=== PATIENT | female | born 1945 | race Caucasian/White ===

== ENCOUNTER 2019-02-12 | Emergency (ER) | payer MEDICARE ==
[~2019-02-12] MED LIST: ACCUPRIL5 MG PO; AMLODIPINE5 MG PO; ASPIRIN81 MG PO; FOSAMAX PLUS PO; GLIMEPIRIDE2 MG PO; OMEPRAZOLE20 MG PO; TOPROL XL PO
[2019-02-12] MEDS ORDERED: GENTAK0.32 OU (14:27)
[2019-02-12] MEDS ORDERED: AMOX/K CLAV875 M1 PO (14:27)
== END 2019-02-12 14:44 | disposition home or self-care (01) ==
DX: J02.0 Streptococcal pharyngitis (principal); H10.33 Unspecified acute conjunctivitis, bilateral; J32.9 Chronic sinusitis, unspecified; E11.9 Type 2 diabetes mellitus without complications; G20 Parkinson's disease; Z79.84 Long term (current) use of oral hypoglycemic drugs

== ENCOUNTER 2019-12-18 15:07 | Emergency (ER) | payer MEDICARE ==
[~2019-12-18] VITALS: Ht 157.5 cm; Wt 57.0 kg
[~2019-12-18 15:07] MED LIST changes: +AMOX/K CLAV875 M1 PO; +GENTAK0.32 OU
[2019-12-18 15:53] LABS: HEMATOCRIT 38.3 % (37.0-47.0); HEMOGLOBIN 12.4 g/dl (12.0-16.0); MEAN CELL VOLUME 92.3 fL CALC (80.0-100.0); MEAN CORPUSCULAR HGB 29.9 pG CALC (26.0-32.0); MEAN CORPUSCULAR HGB CONC 32.4 g/dL CAL (32.0-36.0); NEUT# 8.05 thou/uL (2.00-7.15); RED BLOOD COUNT 4.15 mill/uL (4.20-5.60); RED CELL DISTRI WIDTH 12.9 % (11.5-15.5)
[2019-12-18 16:11] LABS: ALBUMIN 4.5 g/dL (3.2-5.0); ALKALINE PHOSPHATASE 70 u/l (38-126); BILIRUBIN, TOTAL 0.4 mg/dL (0.0-1.4); BUN 45 mg/dL (8-23); BUN/CREATININE RATIO 29 (12-20 (CALC)); CHLORIDE 104 mmol/l (95-108); CREATININE 1.6 mg/dL (0.5-1.0); GFR 31 ML/MIN (>=60 (CALC)); GFR FOR AFR.AMER. 38 ML/MIN (>=60 (CALC)); SGOT/AST 15 u/l (9-36); SODIUM 139 mmol/l (137-146)
[2019-12-18 16:23] LABS: MYOGLOBIN 55 ng/mL (0 - 62)
[2019-12-18] MEDS ORDERED: METFORMIN HCL1000 MG PO (16:24)
[2019-12-18] MEDS ORDERED: CARB/LEVO1 TA5 PO (16:26)
[2019-12-18] MEDS ORDERED: AMANTADINE100 MG PO (16:27)
[2019-12-18 16:29] LABS: ANION GAP 19 (6-22 (CALC)); CARBON DIOXIDE 21 mmol/l (22-30)
[2019-12-18 16:41] LABS: TSH, 3RD GENERATION 1.09 uIU/mL (0.47 - 4.68)
[2019-12-18 17:45] VITALS: BP 124/61
== END 2019-12-18 17:45 | disposition home or self-care (01) ==
LOC: ED 15:07
PROVIDERS: Emergency Medicine
DX: R00.2 Palpitations (principal); N28.9 Disorder of kidney and ureter, unspecified; E11.9 Type 2 diabetes mellitus without complications; G20 Parkinson's disease

== ENCOUNTER 2021-04-14 08:42 | Emergency (ER) | payer MEDICARE ==
[2021-04-14] VITALS (7 sets, daily range): BP systolic 172–190; BP diastolic 87–99
[~2021-04-14] VITALS: Ht 157.5 cm; Wt 50.0 kg
[~2021-04-14 08:42] MED LIST changes: +AMANTADINE100 MG PO; +CARB/LEVO1 TA5 PO; +METFORMIN HCL1000 MG PO
[2021-04-14 09:35] LABS: URINE BILIRUBIN - DIPSTICK NEGATIVE (NEGATIVE); URINE BLOOD DIPSTICK NEGATIVE (NEGATIVE); URINE COLOR YELLOW; URINE GLUCOSE - DIPSTICK 500 mg/dL (NEGATIVE); URINE KETONE NEGATIVE (NEGATIVE); URINE LEUK ESTERASE NEGATIVE (NEGATIVE); URINE NITRITE - DIPSTICK NEGATIVE (Negative); URINE PH 5.5 (4.5-8.0); URINE PROTEIN - DIPSTICK NEGATIVE (NEG-TRACE); URINE SPECIFIC GRAVITY 1.025; URINE UROBILINOGEN - DIPSTICK 0.2 E.U./dL (0.2)
[2021-04-14 09:39] LABS: HEMATOCRIT 32.2 % (37.0-47.0); HEMOGLOBIN 10.5 g/dl (12.0-16.0); IMMATURE GRANULOCYTES 0.2 % (0.0-5.0); MEAN CELL VOLUME 93.6 fL CALC (80.0-100.0); MEAN CORPUSCULAR HGB 30.5 pG CALC (26.0-32.0); MEAN CORPUSCULAR HGB CONC 32.6 g/dL CAL (32.0-36.0); NEUT# 4.26 thou/uL (2.00-7.15); RED BLOOD COUNT 3.44 mill/uL (4.20-5.60); RED CELL DISTRI WIDTH 12.9 % (11.5-15.5)
[2021-04-14 10:58] LABS: ANION GAP 13 (6-22 (CALC)); BILIRUBIN, TOTAL 0.6 mg/dL (0.0-1.4); CARBON DIOXIDE 26 mmol/l (22-30); CHLORIDE 104 mmol/l (95-108); CREATININE 1.4 mg/dL (0.5-1.0); GFR 37 ML/MIN (>=60 (CALC)); GFR FOR AFR.AMER. 44 ML/MIN (>=60 (CALC)); SGOT/AST 25 u/l (9-36); SODIUM 138 mmol/l (137-146); TOTAL PROTEIN 6.9 g/dL (6.3-8.2)
[2021-04-14 11:00] LABS: ALKALINE PHOSPHATASE 85 u/l (38-126); BUN 50 mg/dL (8-23); BUN/CREATININE RATIO 36 (12-20 (CALC)); INTERNATIONAL NORMALIZED RATIO 0.9 RATIO (0.7-1.3); PROTHROMBIN TIME 9.9 SECONDS (9.0-12.5)
--- NOTE | 2021-04-16 08:35 | NUR ---
PRELIMINARY BC SHOW GRAM (+) COCCI IN 4/4 VIALS. RESULTS FAXED TO [facility] NURSE [facility]LA AT [phone]. WILL FOLLOW UP WHEN FINAL RESULTS AVAILABLE.
--- NOTE | 2021-04-17 15:06 | NUR ---
FINAL BLOOD CULTURE RESULTS DISCUSSED WITH CATALINA PAIGE AT [facility]. STAPH HOMINIS IN 4/4 VIALS. RESULTS FAXED TO [id number]
== END 2021-04-14 10:36 | disposition short-term general hospital (02) ==
LOC: ED 08:42
PROVIDERS: Family Medicine
DX: S06.5X0A Traumatic subdural hemorrhage without loss of consciousness, initial encounter (principal); G20 Parkinson's disease; I10 Essential (primary) hypertension; E11.9 Type 2 diabetes mellitus without complications; W19.XXXA Unspecified fall, initial encounter; Z79.84 Long term (current) use of oral hypoglycemic drugs; Z79.82 Long term (current) use of aspirin; Z20.822 Contact with and (suspected) exposure to COVID-19
CPT/HCPCS: J1953